=== PATIENT | male | born 1970 | race Caucasian/White ===

== ENCOUNTER 2022-06-15 14:14 | Emergency (ER) | payer OTHER, SELFPAY ==
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
[2022-06-15 14:21] VITALS: BP 140/90; PULSE 110; RESP 16; TEMP 36.9; O2SAT 99
[2022-06-15] MEDS: IBUPROFEN 600 MG TABLET PO (15:31)
[2022-06-15] MEDS: ACETAMINOPHEN 325 MG TABLET 650 MG PO (15:32)
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
[2022-06-15 17:00] LABS: Amphetamine Screen Urine Negative (Negative); Barbiturate Screen Urine Negative (Negative); Benzodiazepines Screen Urine Negative (Negative); Cannabinoid Screen Urine Negative (Negative); Cocaine Screen Urine Negative (Negative); Methadone Screen Urine Negative (Negative); Opiate Screen Urine Negative (Negative); Phencyclidine Screen Urine Negative (Negative)
== END 2022-06-15 17:18 | disposition home or self-care (01) ==
PROVIDERS: Emergency Provider Emergency Medicine
DX: S16.1XXA Strain of muscle, fascia and tendon at neck level, initial encounter (principal); V69.88XA Occupant (driver) (passenger) of heavy transport vehicle injured in other specified transport accidents, initial encounter
CPT/HCPCS: 70450; 71046; 72072; 72125; 80307; 99284; A9270